=== PATIENT | male | born 1980 | race Hispanic/Latino ===

== ENCOUNTER 2017-04-23 15:54 | Emergency (ER) | payer OTHER ==
[2017-04-23 16:02] VITALS: BP 139/87; PULSE 72; RESP 16; TEMP 98; O2SAT 99
--- NOTE | 2017-04-23 16:36 | ED PDOC ---
Upper Extremity Pain/Injury Time Seen by Provider: 04/23/17 15:54 Chief Complaint (Nursing): Finger,Hand,&Wrist Chief Complaint (Provider): Finger,Hand,&Wrist History Per: Patient History/Exam Limitations: no limitations Onset/Duration Of Symptoms: Mins (prior to arrival ) Current Symptoms Are (Timing): Still Present Additional Complaint(s): 36 y/o male presents to the emergency department via BLS with a complaint of pain to the right middle finger prior to arrival. Described as a stabbing and burning sensation. Patient states he was at work and felt the pain after carrying a heavy sack of cones. Reports he immediately saw bruising with swelling which subsided after icing the region where pain began. Upon arrival, patient feels the 3rd digit of the right hand is tight and unable to bend as he regularly would. Denies any other medical complaints. Past Medical History Reviewed: Historical Data, Nursing Documentation, Vital Signs Vital Signs: Last Vital Signs Temp 98.0 F 04/23/17 16:00 Pulse 72 04/23/17 16:00 Resp 16 04/23/17 16:00 BP 139/87 04/23/17 16:00 Pulse Ox 99 04/23/17 16:00 - Medical History PMH: No Chronic Diseases - Surgical History Surgical History: No Surg Hx - Family History Family History: States: Unknown Family Hx - Home Medications Home Medications: Ambulatory Orders Medication Instructions Recorded Naproxen [Naprosyn Tab] 1 tab PO Q8 PRN #21 tab 04/23/17 - Allergies Allergies/Adverse Reactions: Allergies Allergy/AdvReac Type Severity Reaction Status Date / Time No Known Allergies Allergy Verified 04/23/17 16:00 Review of Systems ROS Statement: Except As Marked, All Systems Reviewed And Found Negative Musculoskeletal: Positive for: Hand Pain (Right middle finger) Physical Exam - Reviewed Nursing Documentation Reviewed: Yes Vital Signs Reviewed: Yes - Physical Exam Appears: Positive for: Non-toxic, No Acute Distress Head Exam: Positive for: ATRAUMATIC, NORMAL INSPECTION, NORMOCEPHALIC Skin: Positive for: Normal Color, Warm, Dry Extremity: Positive for: Swelling (to the 3rd digit but had gotten better since) , Other (Able to flex from the PIP region. ). Negative for: Normal ROM (Not able to flex from the DIP region. ) Neurologic/Psych: Positive for: Alert, Oriented - ECG O2 Sat by Pulse Oximetry: 99 (RA) Pulse Ox Interpretation: Normal - Progress ED Course And Treament: FINGER PLACED IN SPLINT D/W DR. LANE. PATIENT TO F/U WITH HER IN OFFICE THIS WEEK. Medical Decision Making Medical Decision Making: Time: 15:54 Initial Impression: Pain to the right 3rd digit finger Initial Plan: --Hand Right 3rd digit finger (RAD) --Revaluation Time: 17:23 --Hand X-ray FINDINGS: RIGHT MIDDLE FINGER: Right middle finger normal, without fracture of focal lesion. Remainder of the right hand (as seen on the AP view) grossly unremarkable. JOINTS: Normal. SOFT TISSUES: Normal. OTHER FINDINGS: None. IMPRESSION: Unremarkable right middle finger radiographs. Scribe Attestation: Documented by Vickie Flores, acting as a scribe for Ramya Boss PA-C. Provider Scribe Attestation: All medical record entries made by the Scribe were at my direction and personally dictated by me. I have reviewed the chart and agree that the record accurately reflects my personal performance of the history, physical exam, medical decision making, and the department course for this patient. I have also personally directed, reviewed, and agree with the discharge instructions and disposition. Disposition - Clinical Impression Clinical Impression: Tendon injury - Disposition Referrals: Orly Lane MD [Staff Provider] - Disposition: Routine/Home Disposition Time: 17:56 Condition: FAIR Prescriptions: Naproxen [Naprosyn Tab] 1 tab PO Q8 PRN #21 tab PRN Reason: Pain, Moderate (4-7) Instructions: Tendon Rupture (ED) Forms: [facility] ED School/Work Excuse
--- NOTE | 2017-04-23 17:25 | RAD ---
PROCEDURE: Right middle finger radiographs. HISTORY: THIRD FINGER INJURY COMPARISON: None. TECHNIQUE: AP radiograph of the right hand, as well as spot oblique and lateral images of right middle finger were obtained. FINDINGS: RIGHT MIDDLE FINGER: Right middle finger normal, without fracture of focal lesion. Remainder of the right hand (as seen on the AP view) grossly unremarkable. JOINTS: Normal. SOFT TISSUES: Normal. OTHER FINDINGS: None. IMPRESSION: Unremarkable right middle finger radiographs.
== END 2017-04-23 18:14 | disposition home or self-care (01) ==
LOC: H.ER 15:54
DX: S66.112A Strain of flexor muscle, fascia and tendon of right middle finger at wrist and hand level, initial encounter (principal); X50.0XXA Overexertion from strenuous movement or load, initial encounter; Y99.0 Civilian activity done for income or pay